=== PATIENT | female | born 1950 | race Caucasian/White ===

== ENCOUNTER 2017-08-03 08:53 | Emergency (ER) | payer MEDICARE ==
[~2017-08-03] VITALS: Ht 152.4 cm; Wt 50.0 kg
[2017-08-03 09:27] VITALS: BP 103/66; PULSE 78; RESP 16; TEMP 97.5; O2SAT 94
[2017-08-03] MEDS ORDERED: OXYC1TAB63 PO (09:43)
[2017-08-03] MEDS ORDERED: DIPH2.5T14 PO (09:43)
[2017-08-03] MEDS ORDERED: LEVO50TA4 PO (09:43)
[2017-08-03] MEDS ORDERED: [UNRECOGNIZED DRUG - CODE] PO (09:43)
[2017-08-03] MEDS ORDERED: SIMV40TA PO (09:43)
--- NOTE | 2017-08-03 09:58 | PD ---
HPI Chief Complaint: Cold / Flu Symptoms Time Seen by Provider: 09:43 Travel History International Travel<30 days: No Contact w/Intl Traveler<30days: No Traveled to known affect area: No History of Present Illness HPI This 66-year-old female is here for evaluation of cough. sHe was diagnosed with stage IV lung cancer in March of last year. She gets her treatment in [place]. He is currently on gilotrif. She has been coughing for about 3 weeks. It's been a nonproductive cough. She took a course of Z-Neal and Tessalon Perles. This week she has been taking Claritin and Mucinex without much response. She keeps having a persistent cough. She is returning to [place] tomorrow. The family called her oncologist who recommended a chest x- ray [facility] Past Medical History Cancer: Yes (stage 4 lung) Cardiovascular Problems: Yes (high chol) High Cholesterol: Yes Chemotherapy: Yes (Gilofrif) Diminished Hearing: Yes Respiratory: Yes (lung CA) Thyroid Disease: Yes (hypo) Tetanus Vaccination: < 5 Years Influenza Vaccination: No ?: Not Past Surgical History Section: Yes Hysterectomy: Yes (ovary removed) Other Surgery: Yes (lumpectomy ) Social History Alcohol Use: No Tobacco Use: No Substance Use: No Allergies-Medications (Allergen,Severity, Reaction): Coded Allergies: Penicillins (Verified Allergy, Unknown, 08/03/17) Reported Meds & Prescriptions Reported Meds & Active Scripts Active Reported Simvastatin 40 Mg Tab 40 Mg PO HS Levothyroxine (Levothyroxine Sodium) 50 Mcg Tab 50 Mcg PO DAILY Diphenoxylate-Atropine 2.5-0.025 Mg Tab 1 Tab PO Q6H PRN Gilotrif (Afatinib) 20 Mg Tab 20 Mg PO DAILY Take at least 1 hr before or 2 hrs after a meal. Oxycodone-Acetaminophen 5-325 mg Tab 1 Tab PO Q6H PRN Review of Systems General / Constitutional: No: Fever, Chills Eyes: No: Diploplia HENT: No: Headaches Cardiovascular: No: Chest Pain or Discomfort, Palpitations Respiratory: Positive: Cough Gastrointestinal: Positive: Loss of Appetite Genitourinary: No: Urgency, Frequency Skin: No Rash Neurologic: Positive: Weakness Hematologic/Lymphatic: No: Easy Bruising Physical Exam Narrative GENERAL: Well-developed female SKIN: Focused skin assessment warm/dry. HEAD: Atraumatic. Normocephalic. EYES: Pupils equal and round. No scleral icterus. No injection or drainage. ENT: No nasal bleeding or discharge. Mucous membranes pink and moist. NECK: Trachea midline. No JVD. CARDIOVASCULAR: Regular rate and rhythm. No murmur appreciated. RESPIRATORY: No accessory muscle use. Clear to auscultation. Breath sounds equal bilaterally. GASTROINTESTINAL: Abdomen soft, non-tender, nondistended. Hepatic and splenic margins not palpable. MUSCULOSKELETAL: No obvious deformities. No clubbing. No cyanosis. No edema. NEUROLOGICAL: Awake and alert. No obvious cranial nerve deficits. Motor grossly within normal limits. Normal speech. PSYCHIATRIC: Appropriate mood and affect; insight and judgment normal. Data Data Last Documented VS Vital Signs Date Time Temp Pulse Resp B/P (MAP) Pulse Ox O2 Delivery O2 Flow Rate FiO2 08/03/17 09:43 16 94 Room Air 08/03/17 09:27 97.5 78 103/66 (78) Orders Orders Chest, Pa & Lat (08/03/17 09:54) MDM Medical Decision Making Medical Screen Exam Complete: Yes Emergency Medical Condition: Yes Medical Record Reviewed: Yes Differential Diagnosis Differential includes pneumonia, COPD, lung cancer Narrative Course X-rays read as negative. I will give a trial of Hycodan for cough Diagnosis Primary Impression: Cough Additional Impression: Lung cancer Scripts Hydrocodone/Pseudoephed/Guaif (Hycofenix 2.5-30-200 mg/5 ml) 2.5 Mg-30 Mg-200 Mg /5 Ml Solution 5 ML PO Q6HR for cough for 5 Days Prov: Kalen Maldonado MD 08/03/17 Disposition: 01 DISCHARGE HOME Condition: Stable Kalen Maldonado MD Aug 03, 2017 09:58
--- NOTE | 2017-08-03 10:28 | RADRPT ---
EXAM DATE/TIME: 08/03/2017 10:13 [facility] COMPARISON: No previous studies available for comparison. INDICATIONS : Cough. MEDICAL HISTORY : Carcinoma, lung. Hypercholesterolemia. chemotherapy SURGICAL HISTORY : None. ENCOUNTER: Initial ACUITY: 3 weeks PAIN SCORE: 0/10 LOCATION: Bilateral chest FINDINGS: PA and lateral views of the chest demonstrate the lungs to be symmetrically aerated without evidence of mass, infiltrate or effusion. Calcified granulomas. The cardiomediastinal contours are unremarkabl e. Osseous structures are intact. CONCLUSION: No acute disease. Previous granulomatous disease Luis M Javier MD on August 03, 2017 at 10:23 Board Certified Radiologist. This report was verified electronically.
[2017-08-03] MEDS ORDERED: [UNRECOGNIZED DRUG - CODE] PO (11:09)
[2017-08-03] MEDS ORDERED: VANCOMYCIN INJ 750 MG in SODIUM CHLOR 0.9% 250 ML INJ 250 ML IV STA (11:09)
[2017-08-03] MEDS ORDERED: CEFEPIME INJ 2,000 MG in SODIUM CHLORIDE 0.9% INJ 100 ML IV STA (11:09)
[2017-08-03 11:33] VITALS: BP 94/60
== END 2017-08-03 11:34 | disposition home or self-care (01) ==
LOC: PHED 08:53
DX: R05 Cough (principal); C34.90 Malignant neoplasm of unspecified part of unspecified bronchus or lung; E78.00 Pure hypercholesterolemia, unspecified; Z88.1 Allergy status to other antibiotic agents
CPT/HCPCS: 71046; 99283